=== PATIENT | female | born 1965 | race Caucasian/White ===

== ENCOUNTER 2018-10-27 17:58 | Emergency (ER) | payer SELFPAY ==
[~2018-10-27] VITALS: Ht 157.5 cm; Wt 59.0 kg
[2018-10-27 18:04] VITALS: Ht 157.5 cm; Wt 59.0 kg
[2018-10-28 00:01] VITALS: BP 116/90
== END 2018-10-28 00:01 | disposition home or self-care (01) ==
LOC: ED 17:58
DX: S16.1XXA Strain of muscle, fascia and tendon at neck level, initial encounter (principal); S20.211A Contusion of right front wall of thorax, initial encounter; S50.01XA Contusion of right elbow, initial encounter; N39.0 Urinary tract infection, site not specified; F41.9 Anxiety disorder, unspecified; Z76.0 Encounter for issue of repeat prescription; Y04.0XXA Assault by unarmed brawl or fight, initial encounter; Y93.89 Activity, other specified; Y92.89 Other specified places as the place of occurrence of the external cause; Y99.8 Other external cause status